=== PATIENT | female | born 1965 | race Caucasian/White ===

== ENCOUNTER 2019-07-21 01:53 | Inpatient (IN) | payer OTHER ==
[~2019-07-21] VITALS: Ht 154.9 cm; Wt 102.1 kg
--- NOTE | 2019-07-21 01:59 | NUR ---
Patient to ER bed 04 to gown for evaluation. Side rails up.
[2019-07-21 02:05] VITALS: BP_SYST 197
--- NOTE | 2019-07-21 02:05 | NUR ---
Pt c/o abdominal pain that radiates from center of abdomen to epigastric region since yesterday afternoon. Pt states despite taking protonix, kaopectate, and alkaseltzers throughout the day, her pain only worsened leading to her ER visit. 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
--- NOTE | 2019-07-21 02:05 | NUR ---
Pt wheeled to bed 4 for evaluation
--- NOTE | 2019-07-21 02:20 | NUR ---
Dr. Collier at bedside.
[2019-07-21] MEDS ORDERED: NACL 0.9% 1,000 ML IV ONE (02:47)
[2019-07-21] MEDS ORDERED: DIPHENHYDRAMINE INJ 50 MG/ML VIAL IVP ONE ×3 (03:00→08:00)
[2019-07-21] MEDS ORDERED: ONDANSETRON HCL 4 MG/2 ML VIAL IVP ONE (03:00)
[2019-07-21] MEDS ORDERED: KETOROLAC TROMETHAMINE 30 MG VIAL IVP ONE (03:00)
[2019-07-21] MEDS ORDERED: fentaNYL CITRATE/PF 100 MCG/2 ML AMP IVP ONE ×3 (03:00→07:45)
--- NOTE | 2019-07-21 03:15 | NUR ---
# 20 gauge angiocath placed to LAC. Use of asceptic technique. Opsite placed over site. Blood return noted. Blood for lab drawn from site. Flushed with 10 cc of normal saline. No evidence of infiltration noted. Patient tolerated well.
[2019-07-21 03:41] LABS: BASOPHILS # (AUTO) 0.1 K/uL (0.0-0.2); BASOPHILS % (AUTO) 1.2 % (0.0-2.0); EOSINOPHILS # (AUTO) 0.1 K/uL (0.0-0.4); EOSINOPHILS % (AUTO) 1.2 % (0.0-4.0); HEMATOCRIT 42.4 % (36-48); HEMOGLOBIN 14.8 g/dL (12.0-16.0); LYMPHOCYTES # (AUTO) 2.2 K/uL (1.0-5.5); LYMPHOCYTES % (AUTO) 21.6 % (20.5-51.5); MEAN CORPUSCULAR HEMOGLOBIN 31 pg (27-31); MEAN CORPUSCULAR HGB CONC 35 % (32-36); MEAN CORPUSCULAR VOLUME 89 fL (79.0-98.0); MONOCYTES # (AUTO) 0.6 K/uL (0.0-1.0); MONOCYTES % (AUTO) 5.5 % (1.7-9.3); NEUTROPHILS # (AUTO) 7.1 K/uL (1.8-7.7); NEUTROPHILS % (AUTO) 70.5 % (40.0-70.0); PLATELET COUNT (AUTO) 279 K/uL (130-430); RED BLOOD CELL COUNT(AUTO) 4.78 MIL/uL (4.2-6.2); WHITE BLOOD COUNT (AUTO) 10.1 K/uL (4.8-10.8)
[2019-07-21 03:50] LABS: BILIRUBIN,URINE NEGATIVE (NEGATIVE); BLOOD, URINE NEGATIVE (NEGATIVE); CLARITY/URINE SL HAZY (CLEAR); COLOR,URINE YELLOW (YELLOW); GLUCOSE,URINE NEGATIVE (NEGATIVE); KETONES,URINE 1+ (NEGATIVE); LEUKOCYTE ESTERASE ,URINE NEGATIVE (NEGATIVE); NITRITE, URINE NEGATIVE (NEGATIVE); PROTEIN URINE 1+ (NEGATIVE); UROBILINOGEN,URINE 0.2 (0.2-1.0)
[2019-07-21 03:55] LABS: BACTERIA,URINE FEW /HPF (None Seen); CALCIUM 8.9 mg/dL (8.4-11.0); CREATININE 0.81 mg/dL (0.55-1.30); POTASSIUM 3.6 mmol/L (3.5-5.1); RBC,URINE 0-3 /HPF (0-3); WBC,URINE 0-3 /HPF (0-3)
[2019-07-21 04:00] LABS: ALBUMIN 3.8 g/dL (3.4-4.8); TOTAL BILIRUBIN 0.9 mg/dL (0.0-1.0)
--- NOTE | 2019-07-21 04:10 | NUR ---
Pt resting quietly, easily awakened, denies c/o pain or discomfort. Family member at bedside, no needs verbalized at this time.
--- NOTE | 2019-07-21 04:50 | NUR ---
Dr. Collier at bedside to discuss results of exams.
--- NOTE | 2019-07-21 05:00 | NUR ---
Pt states abdominal pain is returning at 8/10. Dr. Collier notified.
--- NOTE | 2019-07-21 05:22 | NUR ---
Pt to CT via stretcher.
--- NOTE | 2019-07-21 05:32 | NUR ---
Pt returns from CT. Verbalizes improvement in pain, no needs verbalized at this time.
--- NOTE | 2019-07-21 05:52 | NUR ---
Pt resting quietly, even and non-labored respirations, on gambling monitor, VSS.
[2019-07-21] MEDS ORDERED: LEVOFLOXACIN 500 MG/D5W 100 ML IV ONE (07:15)
--- NOTE | 2019-07-21 07:25 | NUR ---
Pt c/o nausea. Dr. Collier notified.
[2019-07-21] MEDS ORDERED: FURO-150 PO (07:27)
[2019-07-21] MEDS ORDERED: PYRI50CA PO (07:27)
[2019-07-21] MEDS ORDERED: POTA10TA15 PO (07:27)
[2019-07-21] MEDS ORDERED: VITD2000 PO (07:27)
[2019-07-21] MEDS ORDERED: SYN50 PO (07:27)
[2019-07-21] MEDS ORDERED: PRO40 PO (07:27)
[2019-07-21] MEDS ORDERED: VITA1CAP PO (07:27)
[2019-07-21] MEDS ORDERED: MILK200C5 PO (07:27)
--- NOTE | 2019-07-21 07:28 | NUR ---
MEDICATION RECONCILIATION COMPLETED BASED ON PATIENT RECOLLECTION. NO LIST OR BOTTLES AVAIL.
[2019-07-21] MEDS ORDERED: METOCLOPRAMIDE HCL 10 MG/2 ML VIAL IVP ONE (07:30)
--- NOTE | 2019-07-21 07:35 | NUR ---
Blood Cx X 2 and Lactic acid collected prior to antibiotic administration.
--- NOTE | 2019-07-21 07:37 | NUR ---
X-ray at bedside.
--- NOTE | 2019-07-21 07:39 | NUR ---
Dr. Collier made aware of patient vitals and pain. He verbalized that he would put in orders.
[2019-07-21] MEDS ORDERED: METOCLOPRAMIDE HCL 10 MG/2 ML VIAL ONE (07:40)
--- NOTE | 2019-07-21 07:41 | NUR ---
Called med/surg for room assignment and spoke to Annelise. He stated that the RNs are still in report and unable to give room assignment at this time.
--- NOTE | 2019-07-21 07:47 | NUR ---
Patient is complaining of anxiety. Dr. Prado made aware.
[2019-07-21] MEDS ORDERED: ONDANSETRON HCL 4 MG/2 ML VIAL IVP PRN (08:00)
--- NOTE | 2019-07-21 08:05 | NUR ---
Patient will be admitted to care of Dr. Mendoza. Admitted to med/surg unit. Will go to room 116B. Belongings list completed. Summary report printed. Report will be given at bedside.
--- NOTE | 2019-07-21 08:06 | NUR ---
Patient transferred with intact IV to left AC via gurney and RN to room 116B.
--- NOTE | 2019-07-21 08:36 | NUR ---
CONSULTATION: REASON FOR CONSULT: SMALL BOWEL OBSTRUCTION CONSULTING PHYSICIAN: GWENDOLYN MCNAMARA MD ORDERED BY: DR LIVINGSTON SPOKE WITH MIGDALIA [phone]
--- NOTE | 2019-07-21 08:49 | NUR ---
admission notes, received pt from e.r. c/o rn claudio, pt left by nurse in room with out informing this rn. patient admitted under dr sharif with diagnosis of small bowel obstruction. pt kept npo. safetry precaution in place. call light in reach. encouraged patient to call for assist and any concerns.
[2019-07-21 10:05] VITALS: BP_SYST 145
[2019-07-21 10:07] VITALS: BP_SYST 145
--- NOTE | 2019-07-21 11:40 | NUR ---
FOLLOWED UP PAGE TO DR LIVINGSTON FOR PAIN MEDS. WAS PAGED HALF AN HOUR AGO BUT NO CALL BACK. PT MADE AWARE. PT SEEN IN BED, STATED THAT PAIN IS TOLERABLE AT 5/10 BUT IT IS GOING UP. WILL CONT TO MONITOR AND PAGE .
[2019-07-21] MEDS ORDERED: HYDROmorphone 1 MG INJ. 1 MG/ML AMPUL IVP ONE (12:30)
--- NOTE | 2019-07-21 12:30 | NUR ---
DR LIVINGSTON CALLED BACK AND ORDERED DILAUDID 0.5MG X1, IS REMINDED THAT PT HAS ADVERSE RXN TO MORPHINE, SAID THAT IS EXACTLY WHY SHE IS ORDERING DILAUDID.
[2019-07-21] MEDS ORDERED: ACETAMINOPHEN 650 MG SUPP.RECT RC PRN (13:00)
[2019-07-21] MEDS ORDERED: PANTOPRAZOLE SODIUM 40 MG/VIAL (PROTONIX) IVP ONE (13:45)
[2019-07-21] MEDS ORDERED: GASTROGRAFIN 120 ML ONE ×2 (14:05→21:44)
[2019-07-21] MEDS: POTASSIUM CHLORIDE 10 MEQ in NACL 0.9% 1,000 ML IV SCH ×2 (15:01→23:52)
[2019-07-21 15:30] VITALS: BP_SYST 162
[2019-07-21] MEDS: HYDROmorphone 1 MG INJ. 1 MG/ML AMPUL IVP PRN ×2 (16:02→20:30)
--- NOTE | 2019-07-21 17:42 | NUR ---
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 PT STARTED TO HAVE DRY HEAVES AND LATER ON VOMITED. PT GIVEN ZOFRAN. DIRECT MARKETING ANALYST SAID HE WILL PROBABLY COME BACK TOMORROW. PT WAS CONNECTED TO [facility].
--- NOTE | 2019-07-21 18:34 | NUR ---
CLOSING NOTES, NGT INSERTED BY FRONT ATTENDANT PLA. PT TOLERATED, NGT CONNECTED TO LIS. 100 CC OF DRAINAGE FROM NGT. PT VOMITED 50 CC OF MUCUSY WITH LITTLE BLOOD CLOTS. DRAINAGE FROM NGT IS LIGHT BILE GREEN. PT WAS GIVEN DILAUDID FOR PAIN. SEEN BY DR LIVINGSTON WITH NEW ORDERS. WILL ENDORSE PT TO NIGHT NURSE.
--- NOTE | 2019-07-21 19:50 | NUR ---
Initial note: Received report from cristiana RN. Patient is awake, laying in bed. Alert and oriented x4. No acute distress, tolerating room air. IV site to left AC is receiving IV fluids well, no infiltration noted. NG tube present to left nare, connected to low intermittent suction. Suction canister contains 200 ML yellow/green fluid. Call light with patient. Safety and fall precautions in place. Will continue with plan of care.
[2019-07-21 20:00] VITALS: BP_SYST 149
--- NOTE | 2019-07-21 20:33 | NUR ---
Pain: Patient complained of abdominal pain 07/11. Education provided regarding indications and side effects of Dilaudid. Patient verbalized understanding. Medication administered intravenously as ordered. Call light with patient. Safety and fall precautions in place. Will continue to monitor.
--- NOTE | 2019-07-21 20:52 | NUR ---
Dr. Blunt at bedside: MD at bedside to assess and examine patient. Plan of care discussed between MD, patient, and family.
[2019-07-21] MEDS ORDERED: METOCLOPRAMIDE HCL 10 MG/2 ML VIAL IVP PRN (21:15)
[2019-07-21] MEDS ORDERED: BENZOCAINE 20% 0.5mL UD SPRAY MM SCH (21:30)
--- NOTE | 2019-07-21 21:38 | NUR ---
Nausea: Patient complained of nausea, unresolved by Zofran given earlier. Educated patient regarding indications and side effects of Reglan, understanding verbalized. Administered medication via left AC IV site, no adverse effects noted. Call light with patient. Safety and fall precautions in place. Will continue monitoring.
--- NOTE | 2019-07-21 21:47 | NUR ---
Taken to radiology: Patient was taken off floor to radiology via wheelchair by sujey Rivera for SBFT. NG tube to left nare is patent and intact. Patient left floor in no acute distress, IV site to left AC saline locked.
--- NOTE | 2019-07-21 23:19 | NUR ---
Back from radiology: Patient came back from radiology at this time. NG tube to remain clamped for SBFT. IVF fluids resumed to left AC IV site, site is patent and intact. Will continue monitoring.
--- NOTE | 2019-07-21 23:56 | NUR ---
Nausea: Patient complaining of nausea. Education provided regarding medication Zofran indications and side effects. Patient verbalized understanding. Medication administered via left AC IV site as ordered. No adverse effects noted. Call light with patient. Safety and fall precautions in place. Will continue monitoring.
[2019-07-22] MEDS: HYDROmorphone 1 MG INJ. 1 MG/ML AMPUL IVP PRN (00:41)
--- NOTE | 2019-07-22 00:42 | NUR ---
Pain: Patient complained of abdominal pain 06/10. Education provided regarding indications and side effects of Dilaudid. Patient verbalized understanding. Medication administered intravenously as ordered. Call light with patient. Safety and fall precautions in place. Will continue to monitor.
--- NOTE | 2019-07-22 00:45 | NUR ---
Radiology at bedside: fingerprint technician at bedside to perform x-ray for SBFT. Patient tolerated well. NG tube will remain clamped. Patient is not nauseous at this time. Per first grade teacher, next x-ray will be at 6AM or 7AM later. Will continue monitoring.
[2019-07-22 02:11] VITALS: BP_SYST 150
--- NOTE | 2019-07-22 03:31 | NUR ---
Rounds: Patient is resting comfortably in bed, no distress noted. Respirations are even, unlabored on room air. IV fluids infusing well to left AC site, no infiltration noted. Call light with patient. Safety, fall precautions in place. Will continue to monitor.
--- NOTE | 2019-07-22 04:58 | NUR ---
Bowel movement: Patient ambulated with steady gait to bathroom to have a bowel movement with brown loose stool. Patient denies any pain, nausea, dizziness, or shortness of breath at this time. IV fluids infusing well. Call light with patient. Safety, fall precautions in place. Will continue monitoring.
[2019-07-22 05:41] LABS: BASOPHILS # (AUTO) 0.1 K/uL (0.0-0.2); BASOPHILS % (AUTO) 0.7 % (0.0-2.0); HEMATOCRIT 42.1 % (36-48); HEMOGLOBIN 14.5 g/dL (12.0-16.0); LYMPHOCYTES # (AUTO) 2.4 K/uL (1.0-5.5); LYMPHOCYTES % (AUTO) 17.8 % (20.5-51.5); MEAN CORPUSCULAR HEMOGLOBIN 31 pg (27-31); MEAN CORPUSCULAR HGB CONC 34 % (32-36); MEAN CORPUSCULAR VOLUME 90 fL (79.0-98.0); MONOCYTES # (AUTO) 0.6 K/uL (0.0-1.0); MONOCYTES % (AUTO) 4.8 % (1.7-9.3); NEUTROPHILS # (AUTO) 10.2 K/uL (1.8-7.7); NEUTROPHILS % (AUTO) 76.7 % (40.0-70.0); PLATELET COUNT (AUTO) 280 K/uL (130-430); RED BLOOD CELL COUNT(AUTO) 4.69 MIL/uL (4.2-6.2); RED CELL DISTRIBUTION WIDTH 13.2 % (9.0-15.0); WHITE BLOOD COUNT (AUTO) 13.3 K/uL (4.8-10.8)
--- NOTE | 2019-07-22 06:25 | NUR ---
Closing note: Patient is resting comfortably in bed, no distress. IV fluids infusing well to left AC. NG tube to left nare remains clamped for next SBFT x-ray. Denies pain, nausea, vomiting, dizziness, or shortness of breath. All needs met. Safety and fall precautions observed. Hourly rounding performed throughout shift. Will endorse care to dayshift RN.
[2019-07-22 06:58] LABS: ALBUMIN 3.7 g/dL (3.4-4.8); BILIRUBIN,DIRECT 0.1 mg/dL (0.0-0.3); CALCIUM 9.1 mg/dL (8.4-11.0); CREATININE 0.93 mg/dL (0.55-1.30); POTASSIUM 3.2 mmol/L (3.5-5.1); THYROID STIMULATING HORMONE 0.26 uIu/mL (0.34-4.82); TOTAL BILIRUBIN 0.7 mg/dL (0.0-1.0)
[2019-07-22 07:50] VITALS: BP_SYST 180
[2019-07-22] MEDS: PANTOPRAZOLE SODIUM 40 MG/VIAL (PROTONIX) IVP SCH (08:27)
[2019-07-22] MEDS: ENALAPRILAT DIHYDRATE 1.25 MG/ML VIAL IVP PRN (08:31)
[2019-07-22] MEDS: LEVOFLOXACIN 500 MG/D5W 100 ML IV SCH (08:41)
[2019-07-22] MEDS ORDERED: LEVOTHYROXINE SODIUM 0.2 MG VIAL IVP SCH (09:00)
[2019-07-22] MEDS: POTASSIUM CHLORIDE 10 MEQ in NACL 0.9% 1,000 ML IV SCH ×2 (09:02→12:10)
--- NOTE | 2019-07-22 10:00 | NUR ---
Nutrition Update Olivier Scale 18 noted. Pt admitted for SBO. Diet: NPO BMI: 42.5 kg/m2 RD to follow per nutrition care standards.
--- NOTE | 2019-07-22 10:49 | NUR ---
NGT DISCONTINUED ORDERED, PT TOLERATED WELL.
[2019-07-22] MEDS ORDERED: POTASSIUM CHLORIDE 40 MEQ, LIDOCAINE JECT 2% PF 100 MG 50 MG in NS 250 ML IV ONE (11:45)
[2019-07-22] MEDS ORDERED: ACETAMINOPHEN 325 MG TABLET PO PRN (12:00)
[2019-07-22 13:05] VITALS: BP_SYST 128
[2019-07-22 16:04] VITALS: BP_SYST 133
--- NOTE | 2019-07-22 16:41 | NUR ---
Dietitian Recommendations * Recommend continuing clear liquid, no red diet * Recommend HgA1c lab draw * [facility] to [facility], 2 gm Na, soft (low fiber/bland) diet if/when medically appropriate LP, RD Please refer to Nutrition Assessment for details. JAMES called Dr. Mendoza's office at [facility] to relay RD recommendations. Awaiting call back. Addendum: 07/22/19 at [address] Amended: Links added. Addendum: 07/22/19 at [address] JAMES spoke w/ Dr. Mendoza who stated that pt can have HgA1c tested as an outpatient.
--- NOTE | 2019-07-22 19:46 | NUR ---
CLOSING NOTES, PT HAS BEEN STABLE THE WHOLE SHIFT, NO C/O PAIN, NO N/V, PT TOLERATED THE CLEAR LIQUID DIET. PT HAD 13X DIARRHEA PER PT AND STATED THAT IT IS NORMAL FOR HER GIVEN HER MEDICAL CONDITION. Carmen JJ GIVEN.
--- NOTE | 2019-07-22 19:51 | NUR ---
Initial note: Received report from daysantionetteft RN. Patient is awake, sitting up in bed. Family members present at bedside. Patient is alert and oriented x4, tolerates room air, no acute distress. IV to left AC is saline locked, left forearm IV site receiving IV fluids as ordered, no infiltration at either site. Call light with patient. Bed locked in lowest position, side rails raised x2, bed alarm refused despite education. Will continue with plan of care.
[2019-07-22 20:30] VITALS: BP_SYST 141
--- NOTE | 2019-07-22 21:01 | NUR ---
Headache: Patient complaining of headache and requested Tylenol. Indications and side effects discussed, patient verbalized understanding. Medication was administered as ordered by MD. No adverse effects noted. Call light with patient, will continue to monitor.
--- NOTE | 2019-07-23 00:35 | NUR ---
Rounds: Patient is asleep, no distress. Respirations are even and unlabored on room air. IV fluids infusing well to left forearm IV site. Call light is with patient. Safety and fall precautions in place. Will continue to monitor.
[2019-07-23] MEDS: ENALAPRILAT DIHYDRATE 1.25 MG/ML VIAL IVP PRN (02:09)
[2019-07-23] MEDS: POTASSIUM CHLORIDE 10 MEQ in NACL 0.9% 1,000 ML IV SCH ×2 (02:10→16:13)
--- NOTE | 2019-07-23 02:12 | NUR ---
Elevated BP: Patient's BP on RUFUS is 164/84. PRN Vasotec 0.625 MG indicated. Education provided regarding indications and side effects, patient verbalized understanding. Medication was administered intravenously via left AC IV site as ordered by MD, no adverse effects noted. Call light is with patient. Safety and fall precautions in place. Will continue monitoring.
[2019-07-23] MEDS: HYDROmorphone 1 MG INJ. 1 MG/ML AMPUL IVP PRN (03:41)
--- NOTE | 2019-07-23 03:43 | NUR ---
Pain: Patient was complaining of pain 7/10 to lower back. LEEN Sarah indicated. Educated patient regarding indications and side effects, understanding verbalized. Medication was administered intravenously via left AC IV site per MD order. No adverse effects noted. Call light with patient. Safety, fall precautions in place. Will continue to monitor. Addendum: 07/23/19 at 0408 by Cesar Urena RN Patient's BP at this time was 151/86.
[2019-07-23 05:00] VITALS: BP_SYST 151
[2019-07-23 05:21] LABS: BASOPHILS # (AUTO) 0.1 K/uL (0.0-0.2); BASOPHILS % (AUTO) 1.1 % (0.0-2.0); EOSINOPHILS # (AUTO) 0.2 K/uL (0.0-0.4); EOSINOPHILS % (AUTO) 1.5 % (0.0-4.0); HEMATOCRIT 35.2 % (36-48); HEMOGLOBIN 12.1 g/dL (12.0-16.0); LYMPHOCYTES # (AUTO) 3.6 K/uL (1.0-5.5); LYMPHOCYTES % (AUTO) 36.4 % (20.5-51.5); MEAN CORPUSCULAR HEMOGLOBIN 31 pg (27-31); MEAN CORPUSCULAR HGB CONC 34 % (32-36); MEAN CORPUSCULAR VOLUME 89 fL (79.0-98.0); MONOCYTES % (AUTO) 9.9 % (1.7-9.3); NEUTROPHILS # (AUTO) 5.1 K/uL (1.8-7.7); NEUTROPHILS % (AUTO) 51.1 % (40.0-70.0); PLATELET COUNT (AUTO) 217 K/uL (130-430); RED BLOOD CELL COUNT(AUTO) 3.95 MIL/uL (4.2-6.2); RED CELL DISTRIBUTION WIDTH 13.2 % (9.0-15.0); WHITE BLOOD COUNT (AUTO) 9.9 K/uL (4.8-10.8)
[2019-07-23 05:58] LABS: CALCIUM 8.3 mg/dL (8.4-11.0); CREATININE 0.62 mg/dL (0.55-1.30)
--- NOTE | 2019-07-23 06:35 | NUR ---
Closing note: Patient is awake in bed, no acute distress. Tolerating room air. IV site to left AC is patent, benign, receiving IV fluids well. All needs met. Safety and fall precautions observed. Hourly rounding performed throughout shift. Will endorse care to dayshift RN.
[2019-07-23] MEDS ORDERED: LEVOTHYROXINE SODIUM 0.025 MG TABLET PO SCH (07:00)
--- NOTE | 2019-07-23 08:05 | NUR ---
OPENING NOTE patient resting in bed A&O x4, patient denies any acute distress or pain at this time, patient states her migraine has resolved, educated patient on plan of care and call light system, will continue to monitor, safety precautions in place, call light within reach, IVF infusing as ordered.
[2019-07-23 08:10] VITALS: BP_SYST 135
[2019-07-23] MEDS: LEVOFLOXACIN 500 MG/D5W 100 ML IV SCH (08:26)
[2019-07-23] MEDS: PANTOPRAZOLE SODIUM 40 MG/VIAL (PROTONIX) IVP SCH (08:26)
[2019-07-23] MEDS ORDERED: POTASSIUM CHLORIDE 40 MEQ, LIDOCAINE JECT 2% PF 100 MG 50 MG in NS 250 ML IV ONE (08:45)
--- NOTE | 2019-07-23 10:04 | NUR ---
NOTES patient is resting in bed A&O x4, patient denies any acute distress or pain, K rider and IVF infusing as ordered, breathing is even and unlabored on room air, will continue to monitor, safety precautions in place, call light within reach.
[2019-07-23 12:49] VITALS: BP_SYST 145
--- NOTE | 2019-07-23 12:50 | NUR ---
ENDORSEMENT Report given to Sadie RN at bedside, patient made aware of plan of care, patient denies any acute distress or pain, breathing is even and unlabored on room air, IVF infusing as ordered, all needs were met, safety precautions in place, call light within reach.
--- NOTE | 2019-07-23 12:59 | NUR ---
continuation of care Report was endorsed by Jacqueline RIOJAS. Patient is awake and alert sitting up in bed no signs of any distress, breathing is equal and non labored. Patient educated to use call light for assistance.Call light is with patient. Patient has no other needs at this time. will continue to monitor.
[2019-07-23] MEDS ORDERED: METO50TA7 PO (13:48)
[2019-07-23] MEDS ORDERED: SUCR1TAB78 PO (13:50)
--- NOTE | 2019-07-23 14:00 | NUR ---
Discharge Patient is aware of discharge order but states he son will not be able to pick her up until 1900. Patient educated to use call light for assistance. Patient has no other needs at this time. will continue to monitor.
[2019-07-23 16:00] VITALS: BP_SYST 148
--- NOTE | 2019-07-23 16:16 | NUR ---
IV fluid Patient IV fluid hung as ordered. Patient is requesting a jello and [place] ice provided to patient as requested . Patient has call light with her educated to use for assistance. no other needs at this time. will continue to monitor
[2019-07-23 18:00] VITALS: BP_SYST 148
--- NOTE | 2019-07-23 18:48 | NUR ---
rn closing note Patient is awake and alert sitting in chair at bedside. 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 Patient prescription , and work note provided to patient copy is in the chart. Patient educated to use call light for assistance.Call light is with patient. Patient has no other needs at this time.
--- NOTE | 2019-07-23 19:45 | NUR ---
IV D/C ARM BAND REMOVED PATIENT FOR D/C HOME FAMILY HERE FOR TRANSPORTATION ALL PERSONAL BELONGINGS SENT WITH PATIENT , ORDERS CARRIED OUT .
== END 2019-07-23 19:55 | disposition home or self-care (01) | DRG 389 ==
LOC: SED 01:53 → SMU 07:18
PROVIDERS: ADMIT Internal Medicine; ATTEND Internal Medicine
DX: K56.699 Other intestinal obstruction unspecified as to partial versus complete obstruction (principal); Z68.41 Body mass index [BMI] 40.0-44.9, adult; E89.0 Postprocedural hypothyroidism; G89.29 Other chronic pain; K21.9 Gastro-esophageal reflux disease without esophagitis; D25.9 Leiomyoma of uterus, unspecified; M54.30 Sciatica, unspecified side; M54.5 Low back pain; Z90.710 Acquired absence of both cervix and uterus; Z98.891 History of uterine scar from previous surgery; Z88.0 Allergy status to penicillin; Z79.899 Other long term (current) drug therapy; Z88.5 Allergy status to narcotic agent; E66.01 Morbid (severe) obesity due to excess calories
CPT/HCPCS: 36415; 71045; 74018; 74250-TC; 76700-TC; 80048; 80053; 80076; 81000-TC; 83690-TC; 83735-TC; 84443-TC; 85025; 93005; 96361; 96365; 96375; 96376; 99285; C9113; J1170; J1200; J1885; J1956; J2405; J2765; J3010; J3480; J7030; J7050; Q9963